=== PATIENT | female | born 1955 | race Caucasian/White ===

== ENCOUNTER 2017-11-21 16:52 | Emergency (ER) | payer OTHER ==
[~2017-11-21] VITALS: Ht 167.6 cm; Wt 68.0 kg
--- NOTE | 2017-11-21 18:14 | NUR ---
PATIENT AGITATED. BROUGHT IN TO ROOM COMPLAINS OF LEFT EYE PRESSURE AND FLASHES OF LIGHT.
== END 2017-11-21 18:15 | disposition left against medical advice (07) ==
LOC: ER 16:56
DX: Z53.21 Procedure and treatment not carried out due to patient leaving prior to being seen by health care provider (principal)
CPT/HCPCS: A4663